=== PATIENT | male | born 1965 | race Caucasian/White ===

== ENCOUNTER 2020-03-26 19:03 | Emergency (ER) | payer OTHER ==
[~2020-03-26] VITALS: Ht 160 cm; Wt 82.6 kg
[2020-03-26 19:11] VITALS: Ht 160 cm; Wt 82.6 kg
[2020-03-27 00:09] VITALS: BP 122/81
== END 2020-03-27 00:09 | disposition home or self-care (01) ==
LOC: ED 19:03
DX: S52.572A Other intraarticular fracture of lower end of left radius, initial encounter for closed fracture (principal); S52.612A Displaced fracture of left ulna styloid process, initial encounter for closed fracture; S01.112A Laceration without foreign body of left eyelid and periocular area, initial encounter; S06.0X0A Concussion without loss of consciousness, initial encounter; M25.512 Pain in left shoulder; E11.9 Type 2 diabetes mellitus without complications; Z88.6 Allergy status to analgesic agent; W11.XXXA Fall on and from ladder, initial encounter; Y93.89 Activity, other specified; Y92.89 Other specified places as the place of occurrence of the external cause; Y99.8 Other external cause status
CPT/HCPCS: 82962; J2001; J2250; J2270; J2405; J3010; J3490; Q0092